=== PATIENT | male | born 1980 | race Two or more races ===

== ENCOUNTER 2018-01-20 21:51 | Emergency (ER) | payer OTHER ==
[~2018-01-20] VITALS: Ht 182.9 cm; Wt 113.4 kg
[2018-01-20 21:51] VITALS: BP 139/82
[2018-01-20] MEDS ORDERED: LIDOCAINE HCL/PF 1% 30 ML SDV ONE (22:28)
[2018-01-20] MEDS ORDERED: LIDOCAINE HCL/PF 1% 30 ML VIAL TP ONE (22:30)
[2018-01-20] MEDS ORDERED: TDAP [DIPH/PERTUSSIS/TET] 0.5 ML VIAL IM ONE ×2 (22:30→23:06)
== END 2018-01-20 23:29 | disposition home or self-care (01) ==
LOC: ER 21:52
DX: S61.211A Laceration without foreign body of left index finger without damage to nail, initial encounter (principal); W26.0XXA Contact with knife, initial encounter; Y93.G3 Activity, cooking and baking; Y92.512 Supermarket, store or market as the place of occurrence of the external cause; Y99.8 Other external cause status
CPT/HCPCS: 90715; A4606; A6402; A6403; J3490; Z7610